=== PATIENT | female | born 1980 | race Caucasian/White ===

== ENCOUNTER 2016-07-29 19:11 | Emergency (ER) | payer MEDICAID ==
[~2016-07-29] VITALS: Ht 152.4 cm; Wt 76.2 kg
[~2016-07-29 19:11] MED LIST: CIPRO 500MG TA500 MG PO; DULOXETINE60 MG PO; FLEXERIL10 MG PO; HYDROXYZINE HYD50 M1 PO; KENALOG0.5% TP; TRAZADONE HYDR100 MG PO; VOLTAREN75 MG PO; ZOFRAN4 MG PO
--- NOTE | 2016-07-29 19:41 | Urgent Treatment Center Report ---
History of Present Issue Date/Time Seen by Provider 07/29/161931 Visit Reason Pt arrived:Walked Presenting Problem:PT C/O PAIN IN THE UPPER RIGHT ARM D/T AN INSECT BITE. PT HAS A LARGE SWOLLEN REDDENED AREA AROUND THE BITE CAYDEN. PT ADVISES THIS HAPPENED 2 DAYS AGO Location if Accident: Onset of symptoms date/time:/ or onset unknown for:MEDICAL HX UNKNOWN Have you (or family members/close friends) recently traveled outside the [place]? N If Yes, where/when: Have you had exposure to infectious disease within the past month? TB? Other? 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 ALLERGIES Coded Allergies: promethazine (From PHENERGAN) (09/17/15) sumatriptan (From IMITREX) (ANAPHYLAXIS 09/17/15) Home Medications Active Scripts Ciprofloxacin HCl (Cipro 500MG TAB) 500 MG PO BID #14 TAB Prov: 02/18/16 Cyclobenzaprine Hcl (Flexeril) 10 MG PO TID PRN muscle spasms #9 TAB Prov: 07/10/16 History Medical History General CAD? No Angina: No [place]: No Hypertension? No Hyperlipidemia? No CHF? No DVT? No PE? No COPD? No Asthma? No Anemia? No GERD? No Gastric ulcers? No GI Bleed? No Hernia? No Thyroid Problems? No Hypothyroidism? No CVA? No Seizures? No Diabetes? No Renal Insuffiency? No UTI? No Stones? Yes BPH? No GB Disease: No Nephritic Syndrome? No Asplenia? No Hepatitis? No Sickle Cell Disease? No Arthritis? No Migraines? No Cataracts? No Glaucoma? No MRSA? No HIV? No TB? No Anxiety? Yes Depression? Yes Cancer? No More? No Immunization HX DT/Tetanus 1-4 Years Ago Surgical Hx Previous Surgery?Y HYSTERECTOMY L WRIST CYST REMOVED EXP LAP-ENDOMETRIOSIS REM TONSILS Social History Smoking Hx Smoker: Former Smoker Tobacco: Yes Type Cigarettes Alcohol Alcohol: No Review of Systems All Other Systems Reviewed and Negative Skin rash Comment redness, swelling and hive like lesion on arms Physical Exam Vital Signs Vital Signs Date Time Temp Pulse Resp B/P Pulse O2 O2 Flow FiO2 Ox Delivery Rate 07/29 1921 98.2 78 18 124/81 98 General Appearance normal appearance, WD/WN, no apparent distress Respiratory Status Yes: trachea midline, chest symmetrical, non tender chest. No: respiratory distress. 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 No Results/Orders Current Medication Orders Sig/Kelsie Start time Last Medication Dose Route Stop Time Status Admin Diphenhydramine HCl 50 MG ONCE ONE 07/29 1944 DC 07/29 IM 07/29 Methylprednisolone 125 MG ONCE ONE 07/29 1944 DC 07/29 Sodium Succinate IM 07/29 Methylprednisolone 0 .STK-MED ONE 07/30 1943 DC Sodium Succinate .ROUTE Diphenhydramine HCl 0 .STK-MED ONE 07/29 1942 DC .ROUTE Progress [facility] Progress Notes Date 07/29/16 Time 2016 Comment welp area on right upper arm is improved after injection. Border was drawn around urticaria just prior to injection of benadryl and solumedrol and notable improvement after medication Departure Departure Time of Disposition 2017 Disposition DC Home or Self Care(routine) Clinical Impression Primary Impression: Allergic urticaria Condition STABLE Referrals RUPINDER BROWNLEE (Family): Tomorrow-Call Office if no improvement in symptoms tomorrow Patient Instructions DI for General Allergic Reactions Additional Instructions Over the counter Benadryl as directed for itching Follow up with family doctor tomorrow morning if no improvement or worsening of symptoms Return if needed Discharge Counseling Counseled pt/family regarding diagnosis, medications/RX, home care, follow up needs at 2019
--- NOTE | 2016-07-29 19:41 | Urgent Treatment Center Report ---
History of Present Issue Date/Time Seen by Provider 07/29/161931 Visit Reason Pt arrived:Walked Presenting Problem:PT C/O PAIN IN THE UPPER RIGHT ARM D/T AN INSECT BITE. PT HAS A LARGE SWOLLEN REDDENED AREA AROUND THE BITE CAYDEN. PT ADVISES THIS HAPPENED 2 DAYS AGO Location if Accident: Onset of symptoms date/time:/ or onset unknown for:MEDICAL HX UNKNOWN Have you (or family members/close friends) recently traveled outside the [place]? N If Yes, where/when: Have you had exposure to infectious disease within the past month? TB? Other? 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 ALLERGIES Coded Allergies: promethazine (From PHENERGAN) (09/17/15) sumatriptan (From IMITREX) (ANAPHYLAXIS 09/17/15) Home Medications Active Scripts Ciprofloxacin HCl (Cipro 500MG TAB) 500 MG PO BID #14 TAB Prov: 02/18/16 Cyclobenzaprine Hcl (Flexeril) 10 MG PO TID PRN muscle spasms #9 TAB Prov: 07/10/16 History Medical History General CAD? No Angina: No [place]: No Hypertension? No Hyperlipidemia? No CHF? No DVT? No PE? No COPD? No Asthma? No Anemia? No GERD? No Gastric ulcers? No GI Bleed? No Hernia? No Thyroid Problems? No Hypothyroidism? No CVA? No Seizures? No Diabetes? No Renal Insuffiency? No UTI? No Stones? Yes BPH? No GB Disease: No Nephritic Syndrome? No Asplenia? No Hepatitis? No Sickle Cell Disease? No Arthritis? No Migraines? No Cataracts? No Glaucoma? No MRSA? No HIV? No TB? No Anxiety? Yes Depression? Yes Cancer? No More? No Immunization HX DT/Tetanus 1-4 Years Ago Surgical Hx Previous Surgery?Y HYSTERECTOMY L WRIST CYST REMOVED EXP LAP-ENDOMETRIOSIS REM TONSILS Social History Smoking Hx Smoker: Former Smoker Tobacco: Yes Type Cigarettes Alcohol Alcohol: No Review of Systems All Other Systems Reviewed and Negative Skin rash Comment redness, swelling and hive like lesion on arms Physical Exam Vital Signs Vital Signs Date Time Temp Pulse Resp B/P Pulse O2 O2 Flow FiO2 Ox Delivery Rate 07/29 1921 98.2 78 18 124/81 98 General Appearance normal appearance, WD/WN, no apparent distress Respiratory Status Yes: trachea midline, chest symmetrical, non tender chest. No: respiratory distress. 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 No Results/Orders Current Medication Orders Sig/Kelsie Start time Last Medication Dose Route Stop Time Status Admin Diphenhydramine HCl 50 MG ONCE ONE 07/29 1944 DC 07/29 IM 07/29 Methylprednisolone 125 MG ONCE ONE 07/29 1944 DC 07/29 Sodium Succinate IM 07/29 Methylprednisolone 0 .STK-MED ONE 07/30 1943 DC Sodium Succinate .ROUTE Diphenhydramine HCl 0 .STK-MED ONE 07/29 1942 DC .ROUTE Progress [facility] Progress Notes Date 07/29/16 Time 2016 Comment welp area on right upper arm is improved after injection. Border was drawn around urticaria just prior to injection of benadryl and solumedrol and notable improvement after medication Departure Departure Time of Disposition 2017 Disposition DC Home or Self Care(routine) Clinical Impression Primary Impression: Allergic urticaria Condition STABLE Referrals RUPINDER BROWNLEE (Family): Tomorrow-Call Office if no improvement in symptoms tomorrow Patient Instructions DI for General Allergic Reactions Additional Instructions Over the counter Benadryl as directed for itching Follow up with family doctor tomorrow morning if no improvement or worsening of symptoms Return if needed Discharge Counseling Counseled pt/family regarding diagnosis, medications/RX, home care, follow up needs at 2019
[2016-07-29 20:20] VITALS: BP 124/81
== END 2016-07-29 20:20 | disposition home or self-care (01) ==
LOC: UTC 19:11
DX: L50.0 Allergic urticaria (principal)

== ENCOUNTER 2016-12-14 11:55 | Emergency (ER) | payer MEDICAID ==
[~2016-12-14] VITALS: Ht 152.4 cm; Wt 76.2 kg
[~2016-12-14 11:55] MED LIST changes: +BROMFED DM COU118 ML PO; +MEDROL 4MG. DOSE4 MG PO
[2016-12-14] MEDS ORDERED: AUGMENTIN 875-1 EACH PO (12:59)
--- NOTE | 2016-12-14 13:00 | Urgent Treatment Center Report ---
History of Present Issue Date/Time Seen by Provider 12/14/16 1252 Visit Reason Pt arrived:Walked Presenting Problem:PT STATES KNOT ON NECK AND BACK OF HEAD SINCE TUESDAY Location if Accident: Onset of symptoms date/time:12/13/16/ or onset unknown for:MEDICAL HX UNKNOWN Have you (or family members/close friends) recently traveled outside the [place]? N If Yes, where/when: Have you had exposure to infectious disease within the past month? TB? Other? Specify: c/o painful knot on top of head, "more to the left". First noticed yesterday. had a coworker look, no redness. "just tender and a little swollen". Didn't think much of it. No treatment. Woke this morning and noticed "what I think is a lymph node swollen", left side of posterior neck. Also tender. Denies fever, aches, chills, no headache, no dizziness. No treatment prior to arrival. labrium repair scheduled for one week Source patient Exam Limitations no limitations ALLERGIES Coded Allergies: promethazine (From PHENERGAN) (09/17/15) sumatriptan (From IMITREX) (ANAPHYLAXIS 09/17/15) History Medical History General CAD? No Angina: No [place]: No Hypertension? No Hyperlipidemia? No CHF? No DVT? No PE? No COPD? No Asthma? No Anemia? No GERD? No Gastric ulcers? No GI Bleed? No Hernia? No Thyroid Problems? No Hypothyroidism? No CVA? No Seizures? No Diabetes? No Renal Insuffiency? No UTI? No Stones? Yes BPH? No GB Disease: No Nephritic Syndrome? No Asplenia? No Hepatitis? No Sickle Cell Disease? No Arthritis? No Migraines? No Cataracts? No Glaucoma? No MRSA? No HIV? No TB? No Anxiety? Yes Depression? Yes Cancer? No More? No Immunization HX DT/Tetanus Unknown Surgical Hx Previous Surgery?Y HYSTERECTOMY L WRIST CYST REMOVED EXP LAP-ENDOMETRIOSIS REM TONSILS Social History Smoking Hx Smoker: Current Every Day Smoker Tobacco: Yes Type Cigarettes Alcohol Alcohol: No Review of Systems All Other Systems Reviewed and Negative Constitutional see HPI Eyes denies inflammation, denies pain, denies vision change ENT nose discharge (mild). denies: ear pain, ear discharge, nose congestion, throat pain, throat swelling. Respiratory denies cough Gastrointestinal denies nausea, denies vomiting Musculoskeletal denies neck pain, denies other (neck stiffness) Skin see HPI Psychiatric/Neurological see HPI, denies other (no dizziness) Physical Exam Vital Signs Vital Signs Date Time Temp Pulse Resp B/P Pulse O2 O2 Flow FiO2 Ox Delivery Rate 12/14 1302 98.9 89 20 138/82 100 12/14 1226 98.9 89 20 138/82 100 General Appearance normal appearance, no apparent distress Eye Exam - bilateral eye normal exam Ear, Nose, Throat normal ENT inspection Neck supple, full range of motion Respiratory Status No: respiratory distress, productive cough, non productive cough. Cardiovascular no peripheral edema Neurologic alert, normal exam, no motor/sensory deficits, oriented x 3 Mental status normal mood/affect Skin approx 2-3cm mild raised tender erythema left parietal area, no fluctuation , no drainage, no heat Lymphatic left occipital lymphadenopathy, tender, approx 2cm, soft Medical Decision Making LABS/Meds/Orders Pt receiving controlled substance in ED? No Departure Departure Time of Disposition 1256 Disposition DC Home or Self Care(routine) Clinical Impression Primary Impression: Folliculitis Secondary Impressions: Lymphadenopathy, occipital Condition STABLE Referrals RUPINDER BROWNLEE (Family) Call today and schedule 48 hour follow up to ensure improvement with upcoming surgery Patient Instructions DI for Folliculitis, DI for Lymphadenopathy Additional Instructions Probiotic daily to help with side effects of strong antibiotic warm moist compresses Monitor for worsening redness, swelling, pain, fever, aches, chills. Be sure to FU immediately for new or worsening symptoms Start antibiotics immediately. Be sure to take for full length of time unless told otherwise by a provider Call and notify surgeon of diagnosis and treatment. He will determine necessary changes in surgical plan. Follow up with primary care in 48 hours to ensure improvement. Discharge Counseling Counseled pt/family regarding diagnosis, medications/RX, home care, follow up needs Prescriptions Current Visit Scripts Amoxicillin/Potassium Clav (Augmentin 875-125 Tablet) 1 EACH PO BID #20 TAB at 1558
[2016-12-14 13:02] VITALS: BP 138/82
== END 2016-12-14 13:02 | disposition home or self-care (01) ==
LOC: UTC 11:55
DX: L73.9 Follicular disorder, unspecified (principal); R59.0 Localized enlarged lymph nodes

== ENCOUNTER 2016-12-24 11:38 | Emergency (ER) | payer MEDICAID ==
[~2016-12-24] VITALS: Ht 152.4 cm; Wt 76.2 kg
[~2016-12-24 11:38] MED LIST changes: +AUGMENTIN 875-1 EACH PO
[2016-12-24] MEDS ORDERED: ESTRADIOL0.5 MG PO (11:52)
--- NOTE | 2016-12-24 12:52 | Emergency Room Report ---
History of Present Illness Time Seen by MD Hall Presenting Problem in Triage Pt arrived:Walked Presenting Problem:PT SENT FROM [facility], PT REPORTS STOMACH CRAMPING THAT BEGAN YESTERDAY AND VOMITTING THAT BEGAN TODAY. PT REPORTS NO BM SINCE SHOULDER SURGERY ON 12/21/16. 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 N Clinical Suspician of Infection? N Mental Status: 1 - Regular (Normal Baseline) Sepsis Risk:Low Sepsis Risk Have you (or family members/close friends) recently traveled outside the [place]? N If Yes, where/when: Have you had exposure to infectious disease within the past month? N TB? Other? Specify: Comment The patient had a RIGHT shoulder surgery on Tuesday 3 days ago. She says she has not had a bowel movement since then. She started having some vomiting yesterday and today and developed some lower abdominal cramping today. She has tried stool softeners and then took 3 Dulcolax tablets today without improvement. She was on pain medication, but stopped taking it yesterday. ALLERGIES Coded Allergies: promethazine (From PHENERGAN) (09/17/15) sumatriptan (From IMITREX) (ANAPHYLAXIS 09/17/15) Home Medications Reported Medications Estradiol (Unknown Dose) PO DAILY History Medical History General CAD? No Angina: No [place]: No Hypertension? No Hyperlipidemia? No CHF? No DVT? No PE? No COPD? No Asthma? No Anemia? No GERD? No Gastric ulcers? No GI Bleed? No Hernia? No Thyroid Problems? No Hypothyroidism? No CVA? No Seizures? No Diabetes? No Renal Insuffiency? No End Stage Renal Disease? No UTI? No Stones? Yes BPH? No GB Disease: No Nephritic Syndrome? No Asplenia? No Hepatitis? No Sickle Cell Disease? No Arthritis? No Migraines? No Cataracts? No Glaucoma? No MRSA? No HIV? No TB? No Anxiety? Yes Depression? Yes Cancer? No More? 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 Social History Smoking Hx Smoker: Never Smoker Tobacco: No Alcohol Alcohol: No Review of Systems All Other Systems Reviewed and Negative Constitutional denies fever Gastrointestinal abdominal pain, constipation, vomiting Physical Exam Vital Signs Vital Signs Date Time Temp Pulse Resp B/P Pulse O2 O2 Flow FiO2 Ox Delivery Rate 12/24 1345 97.7 76 18 111/68 96 12/24 1336 76 18 111/68 96 12/24 1212 97.5 74 18 128/68 97 12/24 1147 97.3 89 20 135/88 96 General Appearance normal appearance, WD/WN Eye Exam - bilateral eye normal exam, bilateral eye PERRL, bilateral eye EOMI Ear, Nose, Throat hearing grossly normal, normal ENT inspection Neck normal inspection, non-tender, supple, full range of motion Respiratory Status Yes: trachea midline, chest symmetrical, non tender chest. No: respiratory distress. Lung Sounds bilateral: normal breath sounds, lungs clear. 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 No Results/Orders Laboratory Tests 12/24/16 1240: Sodium 139, Potassium 3.6, Chloride 100, Carbon Dioxide 29, BUN 11, Creatinine 0.7, Estimated Creat Clear 134, Estimated GFR (MDRD) 95, Glucose 101, Calcium 9.1, Total Bilirubin 0.5, AST 24, ALT 34, Alkaline Phosphatase 125 H, Total Protein 7.8, Albumin 3.7, Globulin 4.1 H, Albumin/Globulin Ratio 0.9 L, WBC 10.9 H, RBC 4.78, Hgb 14.5, Hct 41.3, MCV 86.3, RDW 12.6, Plt Count 416, MPV 6.9 L, Gran % 65.0, Gran # 7.1, Lymphocytes % 28.7, Monocytes % 4.7, Eosinophils % 1.2, Basophils % 0.4, Lymphocytes # 3.1, Monocytes # 0.5, Eosinophils # 0.1, Basophils # 0.0, PUBS MCHC 35.2, MCH 30.4, Urine Color YELLOW , Urine Appearance CLOUDY, Urine pH 6.5, Ur Specific [place] 1.015, Urine Protein NEGATIVE, Urine Ketones NEGATIVE, Urine Blood NEGATIVE, Urine Nitrate NEGATIVE, Urine Bilirubin NEGATIVE, Urine Urobilinogen 0.2, Ur Leukocyte Esterase NEGATIVE, Urine WBC 10-20, Ur Squamous Epith Cells 20-50, Urine Bacteria 4+, Urine Mucus 4+, Urine Glucose NEGATIVE Current Medication Orders Sig/Kelsie Start time Last Medication Dose Route Stop Time Status Admin Ondansetron HCl 0 .STK-MED ONE 12/24 1234 DC .ROUTE Sodium Chloride 1,000 ML .STK-MED ONE 12/24 1234 DC IV Ondansetron HCl 4 MG ONCE ONE 12/24 1230 DC 12/24 IV 12/24 1231 1242 Sodium Chloride 10 ML PRN PRN 12/24 1230 DCD IV 12/25 1221 Sodium Chloride 1,000 ML .Q1H1M 12/24 1230 DC 12/24 IV 12/24 1330 1242 Sodium Chloride 10 ML PRN PRN 12/24 1230 DCD IV 12/25 1222 Orders Procedure Date/time Status CULTURE, URINE 12/24 1240 Active IV SALINE LOCK 12/24 1223 Active URINALYSIS/COMPLETE 12/24 1223 Complete CBC WITH AUTO DIFF 12/24 1223 Complete CHEM 12 PROFILE 12/24 1223 Complete XRAY/CT/US XRAY/CT/US XRAY abdomen Comment Abdominal x-ray series interpreted by Gurdeep Martini M.D. No free air. There are a couple of small air-fluid levels, likely ileus. No signs of bowel obstruction. Moderate stool. No abnormal calcifications. Chest x-ray portion of the abdominal series reveals no acute findings. Progress - 1:30 PM: The patient is feeling better. Discussed lab results including urinalysis. Many epithelial cells, likely contaminated. She does have an increased number of WBCs. I discussed the possibility of urinary tract infection versus contamination. She would prefer to await culture results as opposed to getting a catheterized urine specimen today. I discussed whether to treat with antibody syndrome culture results are available, she would prefer to be on antibiotics. Departure Departure Disposition DC Home or Self Care(routine) Clinical Impression Primary Impression: Postoperative ileus Condition STABLE Patient Instructions DI for Ileus Additional Instructions Follow-up your urine culture results on Tuesday with her primary care physician. Additional instructions for ABDOMINAL PAIN: See your physician as soon as possible for further evaluation. Return immediately if worsening abdominal pain, vomiting, shortness of breath, fever, vomiting of blood or abdominal distention. Prescriptions Current Visit Scripts Ondansetron (Zofran 4MG Odt) 4 MG PO Q8HP PRN NAUSEA AND VOMITING #10 ODT Bisacodyl (Dulcolax) 10 MG RC BIDP PRN constipation #2 SUP Magnesium Citrate (Citrate Of Magnesia) 1 BOT PO ONCE #1 BOTTLE NITROFURANTOIN MONOHYD/M-CRYST (Macrobid 100 MG Capsule) 100 MG PO BID #10 CAP ED Critical Care Critical Care No at 1342
[2016-12-24 12:57] LABS: URINE BILIRUBIN - DIPSTICK NEGATIVE (NEG); URINE BLOOD NEGATIVE (NEG)
[2016-12-24 13:01] LABS: HEMOGLOBIN 14.5 g/dL (12.2-16.2); LYMPH # 3.1 K/mm3 (0.7-4.5); LYMPH % 28.7 % (10-50.0)
[2016-12-24 13:03] LABS: URINE SQUAMOUS CELLS 20-50 #/hpf (0-5)
[2016-12-24] MEDS ORDERED: DULCOLAX10 M1 RC (13:34)
[2016-12-24] MEDS ORDERED: ZOFRAN ODT4 MG PO (13:34)
[2016-12-24] MEDS ORDERED: MAGNESIUM CITRA1 BOT PO (13:34)
[2016-12-24] MEDS ORDERED: MACROBID100 M3 PO (13:35)
--- NOTE | 2016-12-24 13:35 | RADIOLOGY REPORT PS360 ---
ABDOMEN-FLAT UPRIGHT HISTORY: Lower abdominal pain and cramping LOWER ABD CRAMPING, NO BM SINCE 12/21/16 ORDERING PHYSICIAN: Gurdeep Martini MD PATIENT AGE: 36 years COMPARISON: None FINDINGS: Nonspecific nonobstructive bowel gas pattern with mild amount retained colonic feces. There are left-sided pelvic calcifications which are nonspecific and may be due to phleboliths. Small area of hyperostosis involves the lateral aspect of the symphysis on the left projecting into the obturator foramen and could be due to old trauma or ligamentous calcification. IMPRESSION: Constipation, no acute finding
[2016-12-24 13:45] VITALS: BP 111/68
== END 2016-12-24 13:45 | disposition home or self-care (01) ==
LOC: UTC 11:38 → ER 11:45
PROVIDERS: Emergency Medicine
DX: K91.3 Postprocedural intestinal obstruction (principal); Y83.8 Other surgical procedures as the cause of abnormal reaction of the patient, or of later complication, without mention of misadventure at the time of the procedure; Y79.8 Miscellaneous orthopedic devices associated with adverse incidents, not elsewhere classified; Z88.8 Allergy status to other drugs, medicaments and biological substances; Z79.890 Hormone replacement therapy; Z87.442 Personal history of urinary calculi; R82.90 Unspecified abnormal findings in urine
CPT/HCPCS: J2405

== ENCOUNTER 2017-03-04 17:39 | Emergency (ER) | payer MEDICAID ==
[~2017-03-04] VITALS: Ht 152.4 cm; Wt 76.2 kg
[~2017-03-04 17:39] MED LIST changes: +DULCOLAX10 M1 RC; +ESTRADIOL0.5 MG PO; +MACROBID100 M3 PO; +MAGNESIUM CITRA1 BOT PO; +ZOFRAN ODT4 MG PO
--- OUTSIDE RECORDS SUMMARY | 2017-03-04 17:46 | External Medical Summary Rpt | CCD ---
Demographics Preferred Language Salvadorean Marital Status Unknown Quaker Affiliation Unknown Race Unknown Ethnic Group Unknown Author Author , MARCIN IBRAHIM Address Unknown Phone Immunization No patient found.
--- OUTSIDE RECORDS SUMMARY | 2017-03-04 17:46 | External Medical Summary Rpt | CCD ---
Author Author , PATRICE IBRAHIM Address Unknown Phone [email or web address] Purpose Continuity of Care Document - 09-06-2016 through 2016 Problems Code Diagnosis DOS Provider Status K57.90 DVRTCLOS OF INTEST, PART UNSP, W/O PERF OR ABSCESS W/O BLEED K59.00 CONSTIPATIO N, UNSPECIFIED K91.89 OTH POSTPROCEDU RAL COMPLICATIO NS AND DISORDERS OF DGSTV SYS N20.0 CALCULUS OF KIDNEY N39.0 URINARY TRACT INFECTION, SITE NOT SPECIFIED R11.2 NAUSEA WITH VOMITING, UNSPECIFIED S16.1XXA STRAIN OF MUSCLE, FASCIA AND TENDON AT NECK LEVEL, INIT W57.XXXA BIT/STUNG BY NONVENOM INSECT \T\ OTH NONVENOM ARTHROPODS, INIT Results Labs Lab Lab Date Result Refere Interp Status Commen Order Detail nces retati t Range on Urinalysis dipstick W Reflex Microscopic panel in Urine (12-24-2016 12:40) Bacteri 4+ O complet a 017 ed [Presen 12:40 ce] in Urine sedimen t by Light microsc opy Mucus 4+ OCC complet [Presen 017 ed ce] in 12:40 Urine sedimen t by Light microsc opy Epithel 20-50 0#/hp complet ial 017 f - ed cells.s 12:40 5#/hp quamous f [Presen ce] in Urine sedimen t by Microsc opy high power field Leukocy 10-20 O complet rhett 017 wbc/hpf ed [#/volu 12:40 me] in Urine Urinalysis dipstick W Reflex Microscopic panel in Urine (12-24-2016 12:40) Appeara CLOUDY CLEAR complet nce of 017 ed Urine 12:40 Bilirub NEGATIV NEG complet in 017 E ed [Presen 12:40 ce] in Urine by Test strip Erythro NEGATIV NEG complet cytes 017 E ed [Presen 12:40 ce] in Urine Color YELLOW YELLOW complet of 017 ed Urine 12:40 Ketones NEGATIV NEG complet 017 E ed [Presen 12:40 ce] in Urine by Automat ed test strip Mucus NEGATIV NEG complet [Presen 017 E ed ce] in 12:40 Urine sedimen t by Light microsc opy Nitrite NEGATIV NEG complet 017 E ed [Presen 12:40 ce] in Urine by Test strip Urobili 0.2 NEG complet nogen 017 ed [Presen 12:40 ce] in Urine by Test strip Streptococcus pyogenes Ag [Presence] in Unspecified specimen (09-06-2016 09:11) Strepto DETECTE NOTDETE Abnorma complet coccus 017 D CTED l ed pyogene 09:11 s Ag [Presen ce] in Unspeci fied specime n
--- OUTSIDE RECORDS SUMMARY | 2017-03-04 17:46 | External Medical Summary Rpt | CCD ---
Demographics Preferred Language Salvadorean Marital Status Unknown Restorationist Affiliation Unknown Race Unknown Ethnic Group Unknown Author Author , MARCIN IBRAHIM Address Unknown Phone Immunization No patient found.
--- OUTSIDE RECORDS SUMMARY | 2017-03-04 17:46 | External Medical Summary Rpt | CCD ---
Author Author , PATRICE IBRAHIM Address Unknown Phone [email or web address] Purpose Continuity of Care Document - 09-06-2016 [...]
--- OUTSIDE RECORDS SUMMARY | 2017-03-04 17:47 | External Medical Summary Rpt ---
Author Author JOSEPHINEAGNES Iraheta, PAT[employer]ICE [employer] Address Unknown Phone Unavailable Results Comprehensive metabolic 2000 panel in Serum or Plasma Observa Value Referen Units Interpr Notes Date tion ce etation Range Albumin/G 1.1 - 1.8 No Low No Sep 8 lobulin informati informati 2017 [Mass on in on in 12:40 PM ratio] in source source Serum or data data Plasma Albumin 3.4 - 5.0 gm/dL Normal No Sep 8 [Mass/vol informati 2017 ume] in on in 12:40 PM Serum or source Plasma data Alkaline 46 - 116 U/L High No Sep 8 phosphata informati 2017 se on in 12:40 PM [Enzymati source c data activity/ volume] in Serum or Plasma Bilirubin 0.2 - 1.0 mg/dL Normal No Sep 8 .total informati 2017 [Mass/vol on in 12:40 PM ume] in source Serum or data Plasma Urea 7 - 18 mg/dL Normal No Sep 8 nitrogen informati 2017 [Mass/vol on in 12:40 PM ume] in source Serum or data Plasma Calcium 8.5 - mg/dL Normal No Sep 8 [Mass/vol 10.1 informati 2017 ume] in on in 12:40 PM Serum or source Plasma data Chloride 98 - 107 mmoL/L Normal No Sep 8 [Moles/vo informati 2017 lume] in on in 12:40 PM Serum or source Plasma data Carbon 21.0 - mmoL/L Normal No Sep 8 dioxide, 32.0 informati 2017 total on in 12:40 PM [Moles/vo source lume] in data Serum or Plasma Creatinin 0.55 - mg/dL Normal No Sep 8 e 1.02 informati 2017 [Mass/vol on in 12:40 PM ume] in source Serum or data Plasma Creatinin 50 - 200 ML/MIN Normal No Sep 8 e renal informati 2017 clearance on in 12:40 PM source predicted data by Cockcroft -Gault formula Estimated 59- ML/MIN No REFERENCE Sep 8 informati RANGE: 2017 glomerula on in >60 12:40 PM r source ML/MIN/1. filtratio data 73 SQUARE n rate METERSIf (GF this patient is -A merican, then multiply theresult by 1.210. Globulin 1.3 - 3.2 gm/dL High No Sep 8 [Mass/vol informati 2016 ume] in on in 12:40 PM Serum source data Glucose 74 - 106 mg/dL Normal No Sep 8 [Mass/vol informati 2016 ume] in on in 12:40 PM Serum or source Plasma data Potassium 3.5 - 5.1 mmoL/L Normal No Sep 8 inform2016 [Moles/vo on in 12:40 PM lume] in source Serum or data Plasma Sodium 136 - 145 mmoL/L Normal No Sep 8 [Moles/vo informati 2016 lume] in on in 12:40 PM Serum or source Plasma data Aspartate 15 - 37 U/L Normal No Sep 8 inform2016 aminotran on in 12:40 PM sferase source [Enzymati data c activity/ volume] in Serum or Plasma Alanine 12 - 78 U/L Normal No Sep 8 aminotran informati 2017 sferase on in 12:40 PM [Enzymati source c data activity/ volume] in Serum or Plasma Protein 6.4 - 8.2 gm/dL Normal No Sep 8 [Mass/vol informati 2016 ume] in on in 12:40 PM Serum or source Plasma data CBC W Auto Differential panel in Blood Observa Value Referen Units Interpr Notes Date tion ce etation Range Basophils 0 - 0.2 K/MM3 Normal No Sep 8 inform2016 [#/volume on in 12:40 PM ] in source Blood by data Automated count Basophils 0.1 - 2.0 % Normal No Sep 8 /100 inform2016 leukocyte on in 12:40 PM s in source Blood by data Automated count Eosinophi 0.0 - 0.4 K/mm3 Normal No Sep 8 ls informati 2016 [#/volume on in 12:40 PM ] in source Blood by data Automated count Eosinophi 0.1 - % Normal No Sep 8 ls/100 12.0 informati 2016 leukocyte on in 12:40 PM s in source Blood by data Automated count Granulocy 1.8 - 7.8 K/mm3 Normal No Sep 8 rhett inform2016 [#/volume on in 12:40 PM ] in source Blood by data Automated count Granulocy 37.0 - % Normal No Sep 8 rhett/100 80.0 informati 2016 leukocyte on in 12:40 PM s in source Blood by data Automated count Hematocri 37.0 - % Normal No Sep 8 t [Volume 47.0 informati 2017 on in 12:40 PM Fraction] source of Blood data Hemoglobi 12.2 - g/dL Normal No Sep 8 n 16.2 informati 2016 [Mass/vol on in 12:40 PM ume] in source Blood data Lymphocyt 0.7 - 4.5 K/mm3 Normal No Sep 8 es informati 2017 [#/volume on in 12:40 PM ] in source Unspecifi data ed specimen by Automated count Lymphocyt 10 - 50.0 % Normal No Sep 8 es inform2016 [#/volume on in 12:40 PM ] in source Unspecifi data ed specimen by Automated count Erythrocy 27 - 31.2 pg Normal No Sep 8 te mean inform2016 corpuscul on in 12:40 PM ar source hemoglobi data n [Entitic mass] Erythrocy 31.8 - g/dl Normal No Sep 8 te mean 35.4 informati 2017 corpuscul on in 12:40 PM ar source hemoglobi data n concentra tion [Mass/vol ume] by Automated count Erythrocy 82.2 - fl Normal No Sep 8 te mean 97.8 informati 2017 corpuscul on in 12:40 PM ar volume source [Entitic data volume] by Automated count Monocytes 0.1 - 1.0 K/mm3 Normal No Sep 8 inform2016 [#/volume on in 12:40 PM ] in source Blood by data Automated count Monocytes 1.7 - 9.3 % Normal No Sep 8 /100 informati 2017 leukocyte on in 12:40 PM s in source Blood by data Automated count Platelet 7.4 - fl Low No Sep 8 mean 10.4 informati 2016 volume on in 12:40 PM [Entitic source volume] data in Blood by Automated count Platelets 142 - 424 K/mm3 Normal No Sep 8 inform2016 [#/volume on in 12:40 PM ] in source Blood data Erythrocy 4.2 - 5.4 M/mm3 Normal No Sep 8 rhett informati 2016 [#/volume on in 12:40 PM ] in source Amniotic data fluid Erythrocy 11.5 - % Normal No Sep 8 te 17.5 informati 2017 distribut on in 12:40 PM ion width source [Entitic data volume] by Automated count Leukocyte 4.8 - K/MM3 High No Sep 8 s 10.8 informati 2017 [#/volume on in 12:40 PM ] in source Blood data Urinalysis dipstick W Reflex Microscopic panel in Urine Observa Value Referen Units Interpr Notes Date tion ce etation Range Appeara CLOUDY CLEAR No No No Sep 8 nce of informa informa informa 2017 Urine tion in tion in tion in 12:40 source source source PM data data data Bacteri 4+ O No No No Sep 8 a informa informa informa 2017 [Presen tion in tion in tion in 12:40 ce] in source source source PM Urine data data data sedimen t by Light microsc opy Bilirub NEGATIV NEG No No No Sep 8 in E informa informa informa 2017 [Presen tion in tion in tion in 12:40 ce] in source source source PM Urine data data data by Test strip Erythro NEGATIV NEG No No No Sep 8 cytes E informa informa informa 2017 [Presen tion in tion in tion in 12:40 ce] in source source source PM Urine data data data Color YELLOW YELLOW No No No Sep 8 of informa informa informa 2017 Urine tion in tion in tion in 12:40 source source source PM data data data Glucose NEG No No No Sep 8 [Mass/vol informati informati informati 2017 ume] in on in on in on in 12:40 PM Urine by source source source Test data data data strip Ketones NEGATIV NEG mg/dL No No Sep 8 E informa informa 2017 [Presen tion in tion in 12:40 ce] in source source PM Urine data data by Automat ed test strip Mucus NEGATIV NEG No No No Sep 8 [Presen E informa informa informa 2017 ce] in tion in tion in tion in 12:40 Urine source source source PM sedimen data data data t by Light microsc opy Mucus 4+ OCC No No No Sep 8 [Presen informa informa informa 2016 ce] in tion in tion in tion in 12:40 Urine source source source PM sedimen data data data t by Light microsc opy Nitrite NEGATIV NEG No No No Sep 8 E informa informa informa 2017 [Presen tion in tion in tion in 12:40 ce] in source source source PM Urine data data data by Test strip pH of 5.0 - 8.5 No Normal No Sep 8 Urine informati informati 2017 on in on in 12:40 PM source source data data Protein NEG mg/dL No No Sep 8 [Mass/vol informati informati 2017 ume] in on in on in 12:40 PM Urine by source source Automated data data test strip Specific 1.005 - No Normal No Sep 8 gravity 1.030 informati informati 2017 of Urine on in on in 12:40 PM source source data data Epithel 20-50 0 - 5 #/hpf No No Sep 8 ial informa informa 2017 cells.s tion in tion in 12:40 quamous source source PM data data [Presen ce] in Urine sedimen t by Microsc opy high power field Urobili 0.2 NEG E.U./dL No No Sep 8 nogen informa informa 2017 [Presen tion in tion in 12:40 ce] in source source PM Urine data data by Test strip Leukocy [10 O wbc/hpf No No Sep 8 rhett wbc/hpf informa informa 2016 [#/volu ; 20 tion in tion in 12:40 me] in wbc/hpf source source PM Urine ] data data Urinalysis dipstick W Reflex Microscopic panel in Urine Observa Value Referen Units Interpr Notes Date tion ce etation Range Appeara CLOUDY CLEAR No No No Sep 8 nce of informa informa informa 2017 Urine tion in tion in tion in 12:40 source source source PM data data data Bilirub NEGATIV NEG No No No Sep 8 in E informa informa informa 2017 [Presen tion in tion in tion in 12:40 ce] in source source source PM Urine data data data by Test strip Erythro NEGATIV NEG No No No Sep 8 cytes E informa informa informa 2017 [Presen tion in tion in tion in 12:40 ce] in source source source PM Urine data data data Color YELLOW YELLOW No No No Sep 8 of informa informa informa 2017 Urine tion in tion in tion in 12:40 source source source PM data data data Glucose NEG No No No Sep 8 [Mass/vol informati informati informati 2017 ume] in on in on in on in 12:40 PM Urine by source source source Test data data data strip Ketones NEGATIV NEG mg/dL No No Sep 8 E informa informa 2017 [Presen tion in tion in 12:40 ce] in source source PM Urine data data by Automat ed test strip Mucus NEGATIV NEG No No No Sep 8 [Presen E informa informa informa 2016 ce] in tion in tion in tion in 12:40 Urine source source source PM sedimen data data data t by Light microsc opy Nitrite NEGATIV NEG No No No Sep 8 E informa informa informa 2016 [Presen tion in tion in tion in 12:40 ce] in source source source PM Urine data data data by Test strip pH of 5.0 - 8.5 No Normal No Sep 8 Urine informati informati 2017 on in on in 12:40 PM source source data data Protein NEG mg/dL No No Sep 8 [Mass/vol informati informati 2017 ume] in on in on in 12:40 PM Urine by source source Automated data data test strip Specific 1.005 - No Normal No Sep 8 gravity 1.030 informati informati 2017 of Urine on in on in 12:40 PM source source data data Urobili 0.2 NEG E.U./dL No No Sep 8 nogen informa informa 2016 [Presen tion in tion in 12:40 ce] in source source PM Urine data data by Test strip Streptococcus pyogenes Ag [Presence] in Unspecified specimen Observa Value Referen Units Interpr Notes Date tion ce etation Range Strepto DETECTE NOTDETE No Abnorma LOT # September 06 coccus D CTED informa l N/A EXP 2016 pyogene tion in DATE 9:11 AM s Ag source N/A [Presen data ce] in Unspeci fied specime n
--- OUTSIDE RECORDS SUMMARY | 2017-03-04 17:47 | External Medical Summary Rpt ---
Author Author JOSEPHINEAGNES Iraheta, PATRICE [employer] Organization [employer] Address Unknown Phone Unavailable [...]
--- NOTE | 2017-03-04 19:16 | Urgent Treatment Center Report ---
History of Present Issue Date/Time Seen by Provider 03/04/17 694 Visit Reason Pt arrived:Walked Presenting Problem:PT STATES SHE INJURED HER LEFT KNEE 3 WEEKS AGO AT HER [place] Location if Accident:Friend/Acquaintance Home Onset of symptoms date/time:/ or onset unknown for:MEDICAL HX UNKNOWN Have you (or family members/close friends) recently traveled outside the [place]? N If Yes, where/when: Have you had exposure to infectious disease within the past month? TB? Other? Specify: Patient state that she was in a wedding about 3 weeks ago when she lost her balance in her heels and twisted her knee several different times State that she throught it would get better however she has continued to have pain over the last few days and getting more painful when she tries to bend it State that she thinks she may have pulled something ALLERGIES Coded Allergies: promethazine (From PHENERGAN) (09/17/15) sumatriptan (From IMITREX) (ANAPHYLAXIS 09/17/15) Home Medications Active Scripts Ondansetron (Zofran 4MG Odt) 4 MG PO Q8HP PRN NAUSEA AND VOMITING #10 ODT Prov: 12/24/16 Bisacodyl (Dulcolax) 10 MG RC BIDP PRN constipation #2 SUP Prov: 12/24/16 Magnesium Citrate (Citrate Of Magnesia) 1 BOT PO ONCE #1 BOTTLE Prov: 12/24/16 NITROFURANTOIN MONOHYD/M-CRYST (Macrobid 100 MG Capsule) 100 MG PO BID #10 CAP Prov: 12/24/16 Reported Medications Estradiol (Unknown Dose) PO DAILY History Medical History General CAD? No Angina: No MT: No Hypertension? No Hyperlipidemia? No CHF? No DVT? No PE? No COPD? No Asthma? No Anemia? No GERD? No Gastric ulcers? No GI Bleed? No Hernia? No Thyroid Problems? No Hypothyroidism? No CVA? No Seizures? No Diabetes? No Renal Insuffiency? No UTI? No Stones? Yes BPH? No GB Disease: No Nephritic Syndrome? No Asplenia? No Hepatitis? No Sickle Cell Disease? No Arthritis? No Migraines? No Cataracts? No Glaucoma? No MRSA? No HIV? No TB? No Anxiety? Yes Depression? Yes Cancer? No More? No Immunization HX DT/Tetanus Unknown Surgical Hx Previous Surgery?Y HYSTERECTOMY L WRIST CYST REMOVED EXP LAP-ENDOMETRIOSIS REM TONSILS SLAP TEAR REPAIR R SHOULD Social History Smoking Hx Smoker: Former Smoker Tobacco: No Alcohol Alcohol: No Review of Systems All Other Systems Reviewed and Negative Comment Pain and mild swelling in left knee after twisting it while in a wedding 3 weeks ago Physical Exam Vital Signs Vital Signs Date Time Temp Pulse Resp B/P Pulse O2 O2 Flow FiO2 Ox Delivery Rate 03/04 1820 98.1 72 20 129/87 98 General Appearance normal appearance, WD/WN, no apparent distress Ear, Nose, Throat hearing grossly normal, normal ENT inspection Respiratory Status Yes: trachea midline, chest symmetrical, non tender chest. No: respiratory distress. Lung Sounds bilateral: normal breath sounds, lungs clear. Cardiovascular normal exam, regular rate/rhythm, no peripheral edema Extremities swelling, Pain and mild swelling in left knee, no discoloration, good pulses, good cap refill good skin color and temp Neurologic alert, normal exam, oriented x 3 Medical Decision Making LABS/Meds/Orders Pt receiving controlled substance in ED? No Results/Orders Orders Procedure Date/time Status [facility] STABILIZE JOINT/AREA 03/04 1930 Active KNEE-3 VIEWS-LT 03/04 1822 Active XRAY/CT/US XRAY/CT/US XRAY knee XR interpretation by reviewed by me Xray Results no fracture seen Comment Will have radiologist do official reading and call patient if any discrepancies noted in reading Progress [facility] Progress Notes Comment Patient asked if needed anything for pain state that she took medication prior to arrival Departure Departure Time of Disposition 1927 Disposition DC Home or Self Care(routine) Clinical Impression Primary Impression: Knee sprain Condition STABLE Referrals RUPINDER BROWNLEE (Family): 2 Days-Call Office Yordan MCQUEEN,Anurag CM MD, ADONIS KILGORE Patient Instructions DI for Knee Pain, How To Perform RICE (Rest, Ice, Compress, Elevate), How to Use Crutches Additional Instructions Follow up with Orthopedics as advised Take medication as prescribed *RICE, Rest the extremity, Ice 15-20 minutes 3-4 times daily, Compress- wear the froilan wrap as discussed as much as possible to help reduce swelling and pain, Elevate the extremity when at rest *Froilan wrap is for support and help control swelling, use it except in the shower. Be sure that is not to tight but not to loose either *Elevate when resting *Ibuprofen 600-800mg every 6-8 hours as needed for pain an inflammation. If need something more can take Tylenol in between doses of Ibuprofen to help Immediately follow up for new or worsening of symptoms, or no noticeable improvement over the next 3-5 days Discharge Counseling Counseled pt/family regarding diagnosis, test results, medications/RX, home care, follow up needs Prescriptions Current Visit Scripts Ibuprofen (Ibuprofen 800MG) 800 MG PO QIDP PRN pain #30 TAB at 1932
--- NOTE | 2017-03-04 19:16 | Urgent Treatment Center Report ---
History of Present Issue Date/Time Seen by Provider 03/04/17 547 Visit Reason Pt arrived:Walked Presenting Problem:PT STATES SHE INJURED HER LEFT KNEE 3 WEEKS AGO AT [place] Location if Accident:Friend/Acquaintance Home Onset of symptoms date/time:/ or onset unknown for:MEDICAL HX UNKNOWN Have you (or family members/close friends) recently traveled outside the [place]? N If Yes, where/when: Have you had exposure to infectious disease within the past month? TB? Other? Specify: Patient state that she was in a wedding about 3 weeks ago when she lost her balance in her heels and twisted her knee several different times State that she throught it would get better however she has continued to have pain over the last few days and getting more painful when she tries to bend it State that she thinks she may have pulled something ALLERGIES Coded Allergies: promethazine (From PHENERGAN) (09/17/15) sumatriptan (From IMITREX) (ANAPHYLAXIS 09/17/15) Home Medications Active Scripts Ondansetron (Zofran 4MG Odt) 4 MG PO Q8HP PRN NAUSEA AND VOMITING #10 ODT Prov: 12/24/16 Bisacodyl (Dulcolax) 10 MG RC BIDP PRN constipation #2 SUP Prov: 12/24/16 Magnesium Citrate (Citrate Of Magnesia) 1 BOT PO ONCE #1 BOTTLE Prov: 12/24/16 NITROFURANTOIN MONOHYD/M-CRYST (Macrobid 100 MG Capsule) 100 MG PO BID #10 CAP Prov: 12/24/16 Reported Medications Estradiol (Unknown Dose) PO DAILY History Medical History General CAD? No Angina: No [place]: No Hypertension? No Hyperlipidemia? No CHF? No DVT? No PE? No COPD? No Asthma? No Anemia? No GERD? No Gastric ulcers? No GI Bleed? No Hernia? No Thyroid Problems? No Hypothyroidism? No CVA? No Seizures? No Diabetes? No Renal Insuffiency? No UTI? No Stones? Yes BPH? No GB Disease: No Nephritic Syndrome? No Asplenia? No Hepatitis? No Sickle Cell Disease? No Arthritis? No Migraines? No Cataracts? No Glaucoma? No MRSA? No HIV? No TB? No Anxiety? Yes Depression? Yes Cancer? No More? No Immunization HX DT/Tetanus Unknown Surgical Hx Previous Surgery?Y HYSTERECTOMY L WRIST CYST REMOVED EXP LAP-ENDOMETRIOSIS REM TONSILS SLAP TEAR REPAIR R SHOULD Social History Smoking Hx Smoker: Former Smoker Tobacco: No Alcohol Alcohol: No Review of Systems All Other Systems Reviewed and Negative Comment Pain and mild swelling in left knee after twisting it while in a wedding 3 weeks ago Physical Exam Vital Signs Vital Signs Date Time Temp Pulse Resp B/P Pulse O2 O2 Flow FiO2 Ox Delivery Rate 03/04 1820 98.1 72 20 129/87 98 General Appearance normal appearance, WD/WN, no apparent distress Ear, Nose, Throat hearing grossly normal, normal ENT inspection Respiratory Status Yes: trachea midline, chest symmetrical, non tender chest. No: respiratory distress. Lung Sounds bilateral: normal breath sounds, lungs clear. Cardiovascular normal exam, regular rate/rhythm, no peripheral edema Extremities swelling, Pain and mild swelling in left knee, no discoloration, good pulses, good cap refill good skin color and temp Neurologic alert, normal exam, oriented x 3 Medical Decision Making LABS/Meds/Orders Pt receiving controlled substance in ED? No Results/Orders Orders Procedure Date/time Status [facility] STABILIZE JOINT/AREA 03/04 1930 Active KNEE-3 VIEWS-LT 03/04 1822 Active XRAY/CT/US XRAY/CT/US XRAY knee XR interpretation by reviewed by me Xray Results no fracture seen Comment Will have radiologist do official reading and call patient if any discrepancies noted in reading Progress [facility] Progress Notes Comment Patient asked if needed anything for pain state that she took medication prior to arrival Departure Departure Time of Disposition 1927 Disposition DC Home or Self Care(routine) Clinical Impression Primary Impression: Knee sprain Condition STABLE Referrals RUPINDER BROWNLEE (Family): 2 Days-Call Office Yordan MCQUEEN,Anurag CM MD, ADONIS KILGORE Patient Instructions DI for Knee Pain, How To Perform RICE (Rest, Ice, Compress, Elevate), How to Use Crutches Additional Instructions Follow up with Orthopedics as advised Take medication as prescribed *RICE, Rest the extremity, Ice 15-20 minutes 3-4 times daily, Compress- wear the froilan wrap as discussed as much as possible to help reduce swelling and pain, Elevate the extremity when at rest *Froilan wrap is for support and help control swelling, use it except in the shower. Be sure that is not to tight but not to loose either *Elevate when resting *Ibuprofen 600-800mg every 6-8 hours as needed for pain an inflammation. If need something more can take Tylenol in between doses of Ibuprofen to help Immediately follow up for new or worsening of symptoms, or no noticeable improvement over the next 3-5 days Discharge Counseling Counseled pt/family regarding diagnosis, test results, medications/RX, home care, follow up needs Prescriptions Current Visit Scripts Ibuprofen (Ibuprofen 800MG) 800 MG PO QIDP PRN pain #30 TAB at 1932
[2017-03-04] MEDS ORDERED: IBUPROFEN800 MG PO (19:32)
[2017-03-04 19:47] VITALS: BP 129/87
--- NOTE | 2017-03-05 11:19 | RADIOLOGY REPORT PS360 ---
KNEE-3 VIEWS-LT INDICATION: Fall 2 weeks ago with persistent pain TECHNIQUE: 3 view left knee. Nonweightbearing. COMPARISON: None available FINDINGS: No fracture nor dislocation apparent. Visualized joint space well maintained. Normal mineralization. No obvious radio opaque foreign bodies. Question suspect modest joint effusion suprapatella bursa on lateral view. IMPRESSION: No fracture nor dislocation. . suspect scant joint effusion suprapatella bursa
== END 2017-03-04 19:48 | disposition home or self-care (01) ==
LOC: UTC 17:39
DX: S83.92XA Sprain of unspecified site of left knee, initial encounter (principal); X50.1XXA Overexertion from prolonged static or awkward postures, initial encounter; Y92.89 Other specified places as the place of occurrence of the external cause; Z87.891 Personal history of nicotine dependence; F41.8 Other specified anxiety disorders; Z88.8 Allergy status to other drugs, medicaments and biological substances

== ENCOUNTER 2017-03-21 07:13 | Emergency (ER) | payer MEDICAID ==
[~2017-03-21] VITALS: Ht 152.4 cm; Wt 71.7 kg
[~2017-03-21 07:13] MED LIST changes: +IBUPROFEN800 MG PO
--- OUTSIDE RECORDS SUMMARY | 2017-03-21 07:48 | External Medical Summary Rpt | CCD ---
Author Author , PATRICE IBRAHIM Address Unknown Phone [email or web address] Purpose Continuity of Care Document - 09-06-2016 [...]
--- OUTSIDE RECORDS SUMMARY | 2017-03-21 07:48 | External Medical Summary Rpt | CCD ---
Author Author , PATRICE IBRAHIM Address Unknown Phone [email or web address] Purpose Continuity of Care Document - 09-06-2016 [...]
--- OUTSIDE RECORDS SUMMARY | 2017-03-21 07:49 | External Medical Summary Rpt | CCD ---
Demographics Preferred Language Puerto Rican Marital Status Unknown Advent Affiliation Unknown Race Unknown Ethnic Group Unknown Author Author , MARCIN IBRAHIM Address Unknown Phone Immunization Unable to retrieve immunization data due to connection failure with Immunization Registry. Please try again later.
--- OUTSIDE RECORDS SUMMARY | 2017-03-21 07:49 | External Medical Summary Rpt | CCD ---
Demographics Preferred Language Barbadian Marital Status Unknown Mandaeism Affiliation Unknown Race Unknown Ethnic Group Unknown Author Author , MARCIN IBRAHIM Address Unknown Phone Immunization Unable to retrieve immunization data due to connection failure with Immunization Registry. Please try again later.
--- OUTSIDE RECORDS SUMMARY | 2017-03-21 07:50 | External Medical Summary Rpt ---
Author Author JOSEPHINEAGNES Iraheta, PATRICE [employer] Organization [employer] Address Unknown Phone Unavailable [...]
--- OUTSIDE RECORDS SUMMARY | 2017-03-21 07:50 | External Medical Summary Rpt ---
Author Author JOSEPHINEAGNES Iraheta, PATRICE [employer] Organization [employer] Address Unknown Phone Unavailable [...]
--- NOTE | 2017-03-21 09:07 | Emergency Room Report ---
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 N Clinical Suspician of Infection? N Mental Status: 1 - Regular (Normal Baseline) Sepsis Risk:Low Sepsis Risk Have you (or family members/close friends) recently traveled outside the [place]? N If Yes, where/when: Have you had exposure to infectious disease within the past month? TB? Other? Specify: Source patient, RN notes reviewed, family, old records Exam Limitations no limitations Comment over the last 24 hrs vomiting and diarrhea with no blood or fever Cardiac Chest Pain Chest pain indicative of cardiac No Timing/Duration this evening Severity moderate ALLERGIES Coded Allergies: promethazine (From PHENERGAN) (09/17/15) sumatriptan (From IMITREX) (ANAPHYLAXIS 09/17/15) Home Medications Active Scripts Ibuprofen (Ibuprofen 800MG) 800 MG PO QIDP PRN pain #30 TAB Prov: 03/04/17 Ondansetron (Zofran 4MG Odt) 4 MG PO Q8HP PRN NAUSEA AND VOMITING #10 ODT Prov: 12/24/16 Reported Medications Estradiol (Unknown Dose) PO DAILY History Medical History General CAD? No Angina: No NM: No Hypertension? No Hyperlipidemia? No CHF? No DVT? No PE? No COPD? No Asthma? No Anemia? No GERD? No Gastric ulcers? No GI Bleed? No Hernia? No Thyroid Problems? No Hypothyroidism? No CVA? No Seizures? No Diabetes? No Renal Insuffiency? No End Stage Renal Disease? No UTI? No Stones? Yes BPH? No GB Disease: No Nephritic Syndrome? No Asplenia? No Hepatitis? No Sickle Cell Disease? No Arthritis? No Migraines? No Cataracts? No Glaucoma? No MRSA? No HIV? No TB? No Anxiety? Yes Depression? Yes Cancer? No More? 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 Respiratory denies cough, denies shortness of breath, denies wheezing Cardiovascular denies chest pain, denies syncope Gastrointestinal see HPI, diarrhea, nausea, vomiting Genitourinary denies: dysuria, frequency, hesitancy. Musculoskeletal denies back pain, denies joint pain, denies joint swelling, denies neck pain Skin denies rash Psychiatric/Neurological denies headache, denies seizure Physical Exam Vital Signs Vital Signs Date Time Temp Pulse Resp B/P Pulse O2 O2 Flow FiO2 Ox Delivery Rate 03/21 1140 105 18 137/78 98 03/21 1015 108 18 128/88 97 03/21 0729 98.0 112 18 138/90 97 - WBC >12,000 or <4,000 or 10% bands? 2 or more SIRS Criteria Met? B/P:137/78 MAP:106 Creatinine >2.0? UA output<0.5ml/kg/hr for 2 hrs? Platelet count >100,000? Lactate >2.0mmol/1? INR >1.2 or PTT > than 60 sec? Evidence of Organ Dysfunction? Provider documented clinical suspician of infection? N Sepsis Criteria Count: 1 Sepsis Risk: Low Sepsis Risk General Appearance no apparent distress Eye Exam - bilateral eye PERRL, bilateral eye EOMI Ear, Nose, Throat normal ENT inspection Neck supple Respiratory Status No: respiratory distress. Lung Sounds bilateral: lungs clear. 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 No Results/Orders Laboratory Tests 03/21/17 0924: Sodium 140, Potassium 4.0, Chloride 104, Carbon Dioxide 25, BUN 10, Creatinine 0.8, Estimated Creat Clear 110, Estimated GFR (MDRD) 81, Glucose 103, Calcium 9.0, Total Bilirubin 0.5, AST 17, ALT 21, Alkaline Phosphatase 121 H, Total Protein 7.4, Albumin 3.7, Globulin 3.7 H, Albumin/Globulin Ratio 1.0 L, WBC 9.7, RBC 4.85, Hgb 14.7, Hct 42.9, MCV 88.6, RDW 12.5, Plt Count 338, MPV 7.1 L , Gran % 86.5 H, Gran # 8.4 H, Total Counted 100, Lymphocytes % 9.3 L, Monocytes % 2.3, Eosinophils % 1.6, Basophils % 0.1, Neutrophils 85 H, Lymphocytes (Manual) 10, Lymphocytes # 0.9, Monocytes (Manual) 5, Monocytes # 0.2, Eosinophils # 0.2, Basophils # 0.0, Platelet Estimate NORMAL, PUBS MCHC 34.2, ESR 8, MCH 30.3 Current Medication Orders Sig/Kelsie Start time Last Medication Dose Route Stop Time Status Admin Ondansetron HCl 4 MG ONCE ONE 03/21 930 DC 03/21 IV 03/21 0931 0931 Ondansetron HCl 0 .STK-MED ONE 03/21 930 DC .ROUTE Sodium Chloride 1,000 ML .STK-MED ONE 03/21 09 DC IV Sodium Chloride 1,000 ML .STK-MED ONE 03/21 0917 DC IV Sodium Chloride 1,000 ML .Q1H1M 03/21 915 DC 03/21 IV 03/21 1015 0930 Sodium Chloride 10 ML PRN PRN 03/21 0915 AC IV 03/22 0908 Sodium Chloride 10 ML PRN PRN 03/21 0915 AC IV 03/22 0915 Orders Procedure Date/time Status DIFFERENTIAL-WBC 03/21 924 Complete IV SALINE LOCK 03/21 915 Active SED RATE 03/21 908 Complete DIARRHEA PANEL, PCR 03/21 908 Active COMPLETE METABOLIC PANEL 03/21 908 Complete CBC WITH AUTO DIFF 03/21 908 Complete Progress ED Progress Notes Date 03/21/17 Time 1227 Comment better Departure Departure Time of Disposition 1225 Disposition DC Home or Self Care(routine) Clinical Impression Primary Impression: Gastroenteritis Condition STABLE Referrals RUPINDER BROWNLEE (Family) Patient Instructions DI for Diarrhea and Traveler's Diarrhea -- Adult Additional Instructions fluids and otc meds and see pcp for follow up and use yourt also Discharge Counseling Counseled pt/family regarding diagnosis, test results, follow up needs ED Critical Care Critical Care No at [id number]
[2017-03-21 09:43] LABS: HEMOGLOBIN 14.7 g/dL (12.2-16.2); LYMPH # 0.9 K/mm3 (0.7-4.5); LYMPH % 9.3 % (10-50.0)
[2017-03-21 10:34] LABS: NEUTROPHILS 85 % (42-76)
[2017-03-21 12:33] VITALS: BP 135/70
[2017-04-09] MEDS ORDERED: MEDROL 4MG. DOSE4 MG PO (10:32)
[2017-04-09] MEDS ORDERED: CLINDAMYCIN HC300 MG PO (10:32)
== END 2017-03-21 12:33 | disposition home or self-care (01) ==
LOC: ER 07:13
PROVIDERS: Emergency Medicine
DX: A08.4 Viral intestinal infection, unspecified (principal); F17.210 Nicotine dependence, cigarettes, uncomplicated
CPT/HCPCS: J2405